=== PATIENT | male | born 1960 | race Caucasian/White ===

== ENCOUNTER 2019-03-01 11:09 | Outpatient (CLI) | payer OTHER ==
--- NOTE | 2019-03-01 11:35 | RAD ---
EXAM: Chest PA and lateral: HISTORY: Shortness of breath. Malignant neoplasm of bone. COMPARISON: None FINDINGS: Heart: Normal cardiac silhouette Aorta: Unremarkable Pulmonary vessels: Normal Costophrenic angles: Costophrenic angles are clear. Lungs: Diffuse interstitial opacities throughout the lung parenchyma. Pneumothorax: No pneumothorax Osseous structures: Sclerotic nodules projects over multiple left and right ribs. Findings may repres ent sclerotic metastases. These nodules measure between 5 to 8 mm. Further evaluation with chest CT may be beneficial. IMPRESSION: 1. Diffuse interstitial opacities throughout the lung parenchyma. Correlate for edema or infiltrate. 2. Questionable sclerotic nodules involving the ribs. Further evaluation with chest CT may be benefic ial.
== END 2019-03-01 11:10 | disposition home or self-care (01) ==
LOC: BICRAD 11:09
PROVIDERS: ATTEND Internal Medicine Hematology & Oncology
DX: R06.02 Shortness of breath (principal)
CPT/HCPCS: 36415; 71046; 80053; 82248; 83615; 84100; 84153; 84550

== ENCOUNTER 2019-03-05 12:50 | Outpatient (CLI) | payer OTHER | END 2019-03-05 12:51 | disposition home or self-care (01) | LOC: ULT 12:50 | PROVIDERS: ATTEND Internal Medicine Hematology & Oncology | DX: E87.70 Fluid overload, unspecified (principal); R06.02 Shortness of breath; R60.0 Localized edema; R91.8 Other nonspecific abnormal finding of lung field; C61 Malignant neoplasm of prostate; C79.51 Secondary malignant neoplasm of bone; I08.1 Rheumatic disorders of both mitral and tricuspid valves | CPT/HCPCS: 93306 ==

== ENCOUNTER 2019-08-08 09:12 | Outpatient (CLI) | payer OTHER ==
--- NOTE | 2019-08-08 13:26 | NM ---
BONE SCAN: 08/08/19 The patient is given 30 millicuries technetium labeled MDP IV. Whole body skeletal images obtained. INDICATIONS: Prostate CA. There is abnormal activity involving the head and neck of the right humerus concerning for metastatic lesion. Abnormal activity in the right clavicle and acromion also worrisome for metastasis. Mottled areas of activity seen through the rib cage bilaterally. Abnormal increased activity seen in the lower thoracic and lumbar vertebrae concerning for neoplasm. Increased activity seen in both proximal femurs more pronounced on the right in the intertrochanteric region. There is increased activity in both acetabular regions and involving the ischium and inferior rami bi laterally. This is symmetric but does appear increased. Bilateral sacral activity is also increased. IMPRESSION: Areas of increased activity throughout the skeletal system concerning for osseous metastasis as jeannette led above. MRI of pelvis and lumbar spine would be of benefit to confirm osseous abnormality. POS: [id number]
== END 2019-08-08 09:13 | disposition home or self-care (01) ==
LOC: NM 09:12
PROVIDERS: ATTEND Internal Medicine Hematology & Oncology
DX: C61 Malignant neoplasm of prostate (principal); C79.51 Secondary malignant neoplasm of bone; R94.8 Abnormal results of function studies of other organs and systems
CPT/HCPCS: 78306; A9503